=== PATIENT | female | born 1970 | race Caucasian/White ===

== ENCOUNTER 2017-01-08 17:11 | Emergency (ER) | payer OTHER ==
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
--- NOTE | 2017-01-11 08:15 | ED ORDER SUMMARY ---
..... Patient: PARISA RODRIGUEZ OrderSheet [facility] VisitID: [id number] [address] [place] [address] 46y, F Registration Date/Time: 01/08/2017 ORDER SHEET Weight: 88.9 kg (stated) Allergies: Narcotics GENERAL ORDERS: Dress Wounds (18:10 01/08/2017 Petrona A.R.N.P.) (18:14 [facility]) MEDICATION ORDERS: IV FLUIDS: ORDER SHEET NOTES: [Electronically signed by Sabine [email or web address] (23:06 01/08/2017)] [Electronically signed by Lynda Howard R.N. (08:14 01/11/2017)] [Electronically locked/signed by Lynda Howard R.N. (08:14 01/11/2017)]
--- NOTE | 2017-01-11 08:15 | ED MAR SUMMARY ---
..... Medication Administration Record [facility] [address] [place], [place] [id number] Patient: PARISA RODRIGUEZ Visit ID: [id number] 46y, F Weight: 88.9 kg Height/Length: 108 in BMI: 11.8 ALLERGIES: Narcotics
--- NOTE | 2017-01-11 08:15 | ED MAR SUMMARY ---
..... Medication Administration Record [facility] [address] [place], [place] [id number] Patient: PARISA RODRIGUEZ Visit ID: [id number] 46y, F Weight: 88.9 kg Height/Length: 108 in BMI: 11.8 ALLERGIES: Narcotics
--- NOTE | 2017-01-11 08:15 | ED MED RECONCILIATION SUMMARY ---
Patient: PARISA RODRIGUEZ Medication Reconciliation Report [facility] VisitID: [id number] [address] [place] [address] 46y, F Registration Date/Time: 01/08/2017 Weight: 88.9 kg Height/Length: 108 in. BMI: 11.8 ALLERGIES: Narcotics The patient's Home Medications are listed below: THE FOLLOWING MEDICATIONS NEED TO BE RECONCILED: Albuterol Sulfate HFA Inhalation Aspirin Oral (81 mg) 1 tablet Naproxen Oral The source(s) of the original Home Medication information: Not obtained. The following Medications were given to the patient in the Emergency Department: None. The following Medications were prescribed to the patient: Flexeril 10 mg: Take 1 orally every 8 hours as needed for muscle spasm. Dispense twenty (20). No refills. Substitution is permissible. -- Sabine Boyd, A.R.N.P. Ultram 50 mg tablets: take 1-2 orally every 6 hours as needed for pain. Dispense twenty (20). No refills. Substitution is permissible. -- Sabine Boyd, A.R.N.P.
--- NOTE | 2017-01-11 08:15 | ED MED RECONCILIATION SUMMARY ---
Patient: PARISA RODRIGUEZ Medication Reconciliation Report [facility] VisitID: [id number] [address] [place] [address] 46y, F Registration Date/Time: 01/08/2017 Weight: 88.9 kg Height/Length: 108 in. BMI: 11.8 ALLERGIES: Narcotics The patient's Home Medications are listed below: THE FOLLOWING MEDICATIONS NEED TO BE RECONCILED: Albuterol Sulfate HFA Inhalation Aspirin Oral (81 mg) 1 tablet Naproxen Oral The source(s) of the original Home Medication information: Not obtained. The following Medications were given to the patient in the Emergency Department: None. The following Medications were prescribed to the patient: Flexeril 10 mg: Take 1 orally every 8 hours as needed for muscle spasm. Dispense twenty (20). No refills. Substitution is permissible. -- Sabine Boyd, A.R.N.P. Ultram 50 mg tablets: take 1-2 orally every 6 hours as needed for pain. Dispense twenty (20). No refills. Substitution is permissible. -- Sabine Boyd, A.R.N.P.
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
== END 2017-01-08 18:49 | disposition home or self-care (01) ==
LOC: ED SRH 17:11
DX: S60.311A Abrasion of right thumb, initial encounter (principal); S50.312A Abrasion of left elbow, initial encounter; S80.212A Abrasion, left knee, initial encounter; M79.1 Myalgia; V13.4XXA Pedal cycle driver injured in collision with car, pick-up truck or van in traffic accident, initial encounter; Y93.55 Activity, bike riding; Y99.8 Other external cause status; Y92.488 Other paved roadways as the place of occurrence of the external cause